=== PATIENT | male | born 1975 | race Caucasian/White ===

== ENCOUNTER 2018-01-17 16:27 | Emergency (ER) | payer BC ==
[~2018-01-17] VITALS: Ht 188 cm; Wt 113.6 kg
[~2018-01-17 16:27] MED LIST: NO HOME MEDICATIONS
[2018-01-17 16:34] VITALS: BP 126/85; TEMP 96.9
[2018-01-17] MEDS ORDERED: ZESTRIL 10MG10 MG PO (16:46)
[2018-01-17] MEDS ORDERED: ZOLOFT 100MG100 MG PO (16:47)
[2018-01-17] MEDS ORDERED: SEROQUEL 200MG200 MG PO (16:47)
[2018-01-17] MEDS ORDERED: NORVASC 10MG10 MG PO (16:47)
[2018-01-17] MEDS ORDERED: ULTRAM 50MG TAB50 MG PO (16:48)
[2018-01-17] MEDS ORDERED: ROBAXIN 75750 MG/TAB PO (16:50)
[2018-01-17] MEDS ORDERED: MELATONIN5 M1 SL (16:50)
[2018-01-17] MEDS ORDERED: 00186-0372-20 IH (16:51)
[2018-01-17] MEDS ORDERED: PROAIR HFA0.09 MG/AC IH (16:51)
[2018-01-17] MEDS ORDERED: AMOXICILLIN 8751 TAB PO (17:15)
[2018-01-17 17:30] VITALS: PULSE 89
== END 2018-01-17 17:31 | disposition home or self-care (01) ==
LOC: COL.ER 16:27
DX: S91.132A Puncture wound without foreign body of left great toe without damage to nail, initial encounter (principal); I10 Essential (primary) hypertension; F17.210 Nicotine dependence, cigarettes, uncomplicated; W26.8XXA Contact with other sharp object(s), not elsewhere classified, initial encounter; Y92.009 Unspecified place in unspecified non-institutional (private) residence as the place of occurrence of the external cause